=== PATIENT | female | born 1995 | race Caucasian/White ===

== ENCOUNTER 2017-08-24 23:56 | Emergency (ER) | payer SELFPAY ==
[2017-08-25 00:10] VITALS: BMI 24.2
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
[2017-08-25] MEDS ORDERED: ACETAMINOPHEN 325 MG TABLET (FP) PO ONE (01:54)
[2017-08-25] MEDS ORDERED: METHOCARBAMOL 500 MG TABLET PO ONE (01:55)
[2017-08-25] MEDS ORDERED: ACETAMINOPHEN 325 MG TABLET (FP) ONE (01:57)
[2017-08-25] MEDS ORDERED: METHOCARBAMOL 500 MG TABLET ONE (01:57)
[2017-08-25] MEDS ORDERED: SODIUM CHLORIDE 1,000 ML IV STA ×3 (02:05→04:29)
[2017-08-25 02:13] LABS: BASO % 0.8 % (0-2.0); EOS % 0.7 % (0-4.5); HEMATOCRIT 36.4 % (32.4-45.2); HEMOGLOBIN 12.1 GM/dL (10.7-15.3); LYMPH % 34.8 % (8-40); MCH 26.3 pg (25.7-33.7); MCHC 33.2 g/dl (32.0-36.0); MEAN CELL VOLUME 79.4 fl (80-96); MEAN PLT VOLUME 10.1 fl (7.5-11.1); NEUT % 52.7 % (42.8-82.8); PLATELET COUNT 187 K/MM3 (134-434); RBC 4.59 M/mm3 (3.60-5.2); RDW 25.3 % (11.6-15.6); WHITE BLOOD COUNT 9.2 K/mm3 (4.0-10.0)
[2017-08-25] MEDS ORDERED: SODIUM CHLORIDE 1,000 ML IV SCH (02:15)
[2017-08-25 02:40] LABS: ALBUMIN 4.1 g/dl (3.4-5.0); ANION GAP 8 (8-16); BILIRUBIN,TOTAL 0.3 mg/dL (0.2-1.0); BLOOD UREA NITROGEN 13 mg/dL (7-18); CALCIUM 8.7 mg/dL (8.5-10.1); CHLORIDE 109 mmol/L (98-107); CO2 25 mmol/L (21-32); CREATININE 0.8 mg/dL (0.55-1.02); GLUCOSE,RANDOM 83 mg/dL (74-106); POTASSIUM 3.9 mmol/L (3.5-5.1); SGOT/AST 40 U/L (15-37); SGPT/ALT 31 U/L (12-78); SODIUM 142 mmol/L (136-145); TOT PROT 7.8 g/dl (6.4-8.2)
[2017-08-25 02:52] LABS: ALK PHOS 52 U/L (45-117)
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
[2017-08-25 08:13] VITALS: BP 120/76; PULSE 60; TEMP 97.9
== END 2017-08-25 08:15 | disposition home or self-care (01) ==
LOC: JER 23:56
DX: S00.12XA Contusion of left eyelid and periocular area, initial encounter (principal); S30.810A Abrasion of lower back and pelvis, initial encounter; S20.419A Abrasion of unspecified back wall of thorax, initial encounter; S10.91XA Abrasion of unspecified part of neck, initial encounter; S80.812A Abrasion, left lower leg, initial encounter; S80.811A Abrasion, right lower leg, initial encounter; Y04.2XXA Assault by strike against or bumped into by another person, initial encounter; Y93.89 Activity, other specified; Y92.89 Other specified places as the place of occurrence of the external cause; F17.210 Nicotine dependence, cigarettes, uncomplicated
CPT/HCPCS: 36415; 70450-TC; 70486-TC; 72125-TC; 80053; 82550; 82553; 84703; 85025; 99284-25; J7030